=== PATIENT | male | born 2000 | race Asian ===

== ENCOUNTER 2023-03-09 20:13 | Emergency (ER) | payer OTHER ==
[~2023-03-09] VITALS: Ht 165.1 cm; Wt 61.2 kg
[2023-03-09 20:20] VITALS: BP_SYST 126
--- NOTE | 2023-03-09 20:57 | NUR ---
Patient to ER bed 5 to gown for evaluation. Side rails up. Report given to MIRZA GAVIRIA.
--- NOTE | 2023-03-09 21:00 | NUR ---
Pt bib self from home. Chief complaint burn to right hand with redness no blister formation at this time. Pt states was cooking a steak on the home grill and the oil splashed his right hand. Pt is aaox3, skin intact, cap return less than 3 seconds.
--- NOTE | 2023-03-09 21:07 | NUR ---
ER at bedside examining patient.
--- NOTE | 2023-03-09 21:13 | NUR ---
Silvadene applied to right hand burn area, no blistering noted.
[2023-03-09] MEDS ORDERED: SILVER SULFADIAZINE 1%, 25 GM TOPICAL CREAM (SSD) TP ONE (21:15)
[2023-03-09] MEDS ORDERED: IBUPROFEN 600 MG TABLET PO ONE (21:15)
[2023-03-09] MEDS ORDERED: SILV20CR13 TP ×2 (21:31→22:19)
[2023-03-09] MEDS ORDERED: IBUP-1969 PO ×2 (21:31→22:19)
--- NOTE | 2023-03-09 21:45 | NUR ---
Patient given written and verbal discharge instructions and verbalizes understanding. ER MD discussed with patient the results and treatment provided. Patient in stable condition. ID arm band removed. Rx of Silvadene and ibuprofen given. Patient educated on pain management and to follow up with PMD. Opportunity for questions provided and answered. Medication side effect fact sheet provided.
[2023-03-09 21:51] VITALS: BP_SYST 126
== END 2023-03-09 21:50 | disposition home or self-care (01) ==
LOC: SED 20:13
DX: T23.201A Burn of second degree of right hand, unspecified site, initial encounter (principal); Z79.899 Other long term (current) drug therapy; X10.2XXA Contact with fats and cooking oils, initial encounter; Y93.89 Activity, other specified; Y92.89 Other specified places as the place of occurrence of the external cause; Y99.8 Other external cause status
CPT/HCPCS: 99282; 99283